=== PATIENT | male | born 1955 | race Caucasian/White ===

== ENCOUNTER → 2016-12-26 | Outpatient (CLI) | payer MEDICARE ==
[~2016-12-26] MED LIST: ASPIRIN 325MG325 MG PO; BENTYL10 M1 PO; CIPRO 500MG TA500 MG PO; COREG 3.125M3.125 MG PO; GUIATUSS AC PO; LASIX40 MG PO; LISINOPRIL 20MG20 MG PO; PLAVIX75 MG PO; PRAVASTATIN 40M40 MG PO; PREDNISONE 20MG20 MG PO; ZITHROMAX Z-PA250 M1 PO
[2016-12-26 09:14] LABS: AMPHETAMINES/METAMPHETAMINES NEGATIVE ng/mL (<1000)
== END ==
LOC: LAB 08:33
PROVIDERS: Internal Medicine
DX: I25.5 Ischemic cardiomyopathy (principal); N18.2 Chronic kidney disease, stage 2 (mild); I50.21 Acute systolic (congestive) heart failure; I11.9 Hypertensive heart disease without heart failure; F11.20 Opioid dependence, uncomplicated